=== PATIENT | female | born 1960 | race Caucasian/White ===

== ENCOUNTER 2025-01-04 14:52 | Outpatient (AMB) | payer BC, SELFPAY ==
--- NOTE | 2025-01-04 14:59 | A.OFFVIS_ITS ---
Intake Visit Reasons: sooner follow up Accompanied by: Daughter Allergies amoxicillin (From Augmentin) Allergy (Unknown, Verified 01/04/25 15:05) Unknown clavulanic acid (From Augmentin) Allergy (Unknown, Verified 01/04/25 15:05) Unknown sulfamethoxazole (From Bactrim) Allergy (Unknown, Verified 01/04/25 15:05) Unknown trimethoprim (From Bactrim) Allergy (Unknown, Verified 01/04/25 15:05) Unknown Medication List - Last Reconciled 01/04/25 by Pavithra Jj CNP aspirin 81 mg PO DAILY atorvastatin 80 mg PO DAILY clopidogrel 75 mg PO DAILY abnaplxcjfu-fklpqakjd-dtuxwanj 100-62.5-25 mcg (Trelegy Ellipta) 1 ea inhalation DAILY levetiracetam 500 mg PO BID 30 days levothyroxine 50 mcg PO DAILY memantine 10 mg PO BID 30 days metoprolol succinate ER 25 mg PO DAILY mirtazapine 30 mg PO BEDTIME sacubitril-valsartan 24-26 mg (Entresto) 1 tab PO BID sertraline 50 mg PO DAILY spironolactone 25 mg PO BID sumatriptan succinate take 1 tab at onset of headache; if no relief may repeat 1 tab after at least 2 hrs; PO 30 days HPI Comments Details: She was here with her daughter. She was living with her partner (Pearl) and her son, and had [employer] 40hrs/week. She was having more muscle twitches or jerking-type movement primarily in the morning and lasting up to 3 hours each time. It happened almost every day. Her daughter had a video of an episode that happened over the weekend that was taken by the patient's son and was reviewed. She appeared more confused and tired after these episodes. She had fall on Friday when she woke during the night to use the bathroom. There were no witnesses. She does not remember falling and it is unclear if she hit her head. She had small bruise or scrape to lower back. No headaches or dizziness. Medications were in bubble pack and she was taking levetiracetam twice a day, no missed doses. Memory declining, trouble following and comprehending multi-step instructions. She was living with her partner (Pearl) and her son who both worked during the day. Picky with food and clothes. Some tremors were noted in her hands in the morning and sometimes had trouble holding cup of tea because of it, got better as the day went on. Does some crafts, coloring, cares for her bird, and goes for walks with her dog and caregiver. Does some house hold chores with supervision. Switched to alcohol free beer in 08/2023. Had seizure on 08/20/2023 that was witnessed by partner and brought to [facility], started on levetiracetam 500mg twice a day and memantine decreased to once a day. Hx of language problems, trouble forming words, getting words out. Often repeats herself. Short-term memory problems since 2018. Migraines in 2015 which since resolved that were treated with topiramate and sumatriptan. [facility] Medical History (Updated 01/04/25 @ 15:23 by Pavithra Jj CNP) Low back pain History of heart attack COPD (chronic obstructive pulmonary disease) Hypothyroidism Review of Systems Const Denies chills, Denies daytime sleepiness, Denies difficulty sleeping, Denies fatigue, Denies fever(s), Denies frequent falls, Denies headache(s), Denies increased appetite, Denies poor appetite, Denies snoring, Denies weakness, Denies weight gain and Denies weight loss Eyes Denies loss of vision ENT Denies vertigo, Denies dizziness, Denies headache(s) and Denies neck pain Card Denies chest pain at rest, Denies chest pain with activity, Denies syncope, Denies leg edema, Denies palpitations, Denies dyspnea and Denies dyspnea on e xertion Resp Denies cough, Denies dyspnea, Denies dyspnea on exertion and Denies snoring GI Denies abdominal pain, Denies constipation, Denies heartburn, Denies diarrhea and Denies nausea Denies urinary frequency, Denies urinary incontinence and Denies urinary urgency Musc Denies abnormal gait, Denies back pain, Denies myalgias, Denies arthralgias, Denies neck pain, Denies numbness and Denies tingling Neuro Denies abnormal gait, Denies vertigo, Denies dizziness, Denies syncope, Denies frequent falls, Denies headache(s), Denies lack of coordination, Denies loss of vision, Reports memory loss, Denies numbness, Denies Other visual disturbances, Denies restless legs, Denies seizure-like activity, Denies tingling, Denies paresthesias, Reports tremor(s) and Denies weakness Psych Denies anxiety, Denies depression, Denies auditory hallucinations, Reports memory loss and Denies visual hallucinations Endo Denies fatigue and Denies palpitations Physical Exam Const Other: General Appearance:? normal, in no acute distress. Heart:? S1, S2 normal, no murmurs. Lungs:? clear anteriorly and posteriorly. Musculoskeletal:? normal. Extremities:? no edema. Psych:? alert, as below. Neuro Other: Abnormal Neurological Findings:?MMSE <12/30. She is unable to tell me her age or birthday. She was able to tell me that she was here with her daughter and her daughter's name. Somewhat flat affect. Mental Status: alert, as below. Cranial Nerves: Pupils are equal, round, and reactive to light. External ocular muscles are intact. Visual marquez are full, no ptosis. Face is symmetrical, no facial weakness or droop. Facial sensations are normal. Tongue protrudes in midline. Palate elevates symmetrically. Shoulder shrugging is normal Motor Examination: Normal muscle tone, bulk and strength. No atrophy or fasciculations. No drift of the extended upper extremities. DTR 2+. Plantars are flexor. Sensory Exam: Normal light touch, temperature, pinprick, vibration, and joint- position sensations. Rhomberg sign is absent. Coordination: No ataxia. No titubation. Gait Exam: Within normal limits. Cerebellar Signs: [id number] is okay. Extrapyramidal System: No tremor. Slight cogwheeling in upper extremities. No bradykinesia. Speech: Decreased. MMSE Level of Consciousness: Alert. Orientation: Does not know correct year, month, date, day and season. Does not know correct city, county and state. Does not know correct location and floor. Registration: Able to register 3 objects. Attention: Serial 7's unable Recall: Able to recall 0 out of 3 objects. Language: Decreased spontaneous speech, fluency, repetition, naming, comprehension, reading, and writing. Total Score: <12/30. Results Reviewed Results Reviewed: 06-16-19 EEG- WNL Labs normal. MRI shows biparietal atrophy Assessment & Plan Assessment & Plan (1) Alzheimer dementia: Code(s): G30.9 - Alzheimer's disease, unspecified; F02.80 - Dementia in other diseases classified elsewhere, unspecified severity, without behavioral disturbance, psychotic disturbance, mood disturbance, and anxiety Category: Medical Qualifiers: Alzheimer's disease onset: unspecified onset Dementia severity: unspec ified severity Dementia behavioral or psychological symptom: with mood disturbance Qualified Code(s): G30.9 - Alzheimer's disease, unspecified; F02.83 - Dementia in other diseases classified elsewhere, unspecified severity, with mood disturbance Plan: Decrease memantine 10mg 1 tablet once a day. Continue sertraline 50mg 1 tablet daily. (2) Seizure disorder: Code(s): G40.909 - Epilepsy, unspecified, not intractable, without status epilepticus Category: Medical Plan: Increase levetiracetam 750mg 1 tablet twice a day. EEG ordered. Follow up as previously scheduled or sooner as needed. (3) Migraine: Code(s): G43.909 - Migraine, unspecified, not intractable, without status migrainosus Category: Medical Qualifiers: Migraine type: unspecified Status migrainosus presence: without status migrainosus Intractability: not intractable Qualified Code(s): G43.909 - Migraine, unspecified, not intractable, without status migrainosus Plan: Continue sumatriptan 50mg 1 tablet as needed for migraine. (4) Unwitnessed fall: Code(s): R29.6 - Repeated falls Category: Medical Plan: CT brain ordered. Orders: Orders CT head/brain wo IV con Today F02.83 - Dementia in other diseases classified elsewhere, unspecified severity, with mood disturbance, G30.9 - Alzheimer's disease, unspecified, R29.6 - Repeated falls EEG Routine Today G40.909 - Epilepsy, unspecified, not intractable, without status epilepticus Medications: New memantine (Namenda) 10 mg PO DAILY 30 tabs 5RF 30 days levetiracetam 750 mg PO BID 60 tabs 5RF 30 days Discontinued memantine Discontinued Reason: Doctor's Order 10 mg PO BID 30 days 60 tabs 5RF levetiracetam Discontinued Reason: Doctor's Order 500 mg PO BID 30 days 60 tabs 5RF Coding Level of Care Code Est Pt Level 4 (69870) Diagnoses Alzheimer's dementia with mood disturbance, unspecified dementia severity, unspecified timing of dementia onset G30.9; F02.83 Alzheimer's disease onset: unspecified onset Dementia severity: unspecified severity Dementia behavioral or psychological symptom: with mood disturbance Seizure disorder G40.909 Migraine without status migrainosus, not intractable, unspecified migraine type G43.909 Migraine type: unspecified Status migrainosus presence: without status migrainosus Intractability: not intractable Unwitnessed fall R29.6
--- OUTSIDE RECORDS SUMMARY | 2025-01-04 19:18 | XMS_ITS ---
Author Name [facility] Organization Unknown Care Team Organization Name Specialty Phone Email Start Date End Da te [facility] ACO 10/27/2024 [facility] 08/16/2022 10/27/2023 [facility] Jo Moon [facility] 01/15/2022
--- OUTSIDE RECORDS SUMMARY | 2025-01-04 19:18 | XMS_ITS | Clinical Summary ---
Author Organization [facility] Address [address] [place] [address] Phone Care Team Providers Care Rn Research Name Role Phone Shahida Salazar MD Primary Care Prov ider Allergies Active Allergy Reactions Criticality Noted Date Comments Amoxicillin-Pot Clavulanate Numbness 01/16/20 06 Diclofenac Sodium Nausea And Vomiting 3 Sulfamethoxazole-Trimethoprim Numbness 2005 Medications levETIRAcetam (KEPPRA) 500 mg tablet Take 1 tablet (500 mg total) by mouth 2 (two) times a day. 08/21/19 24 Active memantine (NAMENDA) 10 mg tablet Take 1 tablet (10 mg total) by mouth 1 (one) time each day. 09/02/19 24 Active sertraline (ZOLOFT) 50 mg tablet Take 1 tablet (50 mg total) by mouth 1 (one) time each day. 02/19/20 22 Active spironolactone (ALDACTONE) 25 mg tablet Take 0.5 tablets (12.5 mg total) by mouth 1 (one) time each day. 90 tablet 06/19/19 25 Active fluticasone-um eclidinium-clement anterol (Trelegy Ellipta) 100-62.5-25 mcg inhaler Inhale 1 puff (100 mcg total) by mouth 1 (one) time each day. Rinse mouth with water after use to reduce aftertaste and incidence of candidiasis. Do not swallow. 1 each 06/29/19 25 026 Active albuterol HFA (PROAIR HFA ; PROVENTIL HFA ; VENTOLIN HFA) 90 mcg/actuation inhaler Inhale 2 puffs by mouth every 6 (six) hours if needed for wheezing. 6.7 g 11 06/29/19 25 026 Active albuterol 2.5 mg /3 mL (0.083 %) nebulizer solution Take 3 mL (2.5 mg total) by nebulization if needed for wheezing. Active aspirin 81 mg EC tablet TAKE 1 TABLET BY MOUTH ONCE DAILY 90 tablet 1 09/17/19 Active walker misc 1 Device 1 (one) time each day. Walker with seat 1 each 10/23/19 Active sacubitriL-danette sartan (Entresto) 24-26 mg per tablet Take 0.5 tablets by mouth 2 (two) times a day. 10/23/19 Active mirtazapine (REMERON) 30 mg tablet Take 1 tablet (30 mg total) by mouth at bedtime. 30 each 2 12/04/19 25 Active clopidogreL (PLAVIX) 75 mg tablet TAKE 1 TABLET BY MOUTH ONCE DAILY 30 tablet 4 01/01/20 25 Active metoprolol succinate (TOPROL-XL) 25 mg 24 hr tablet TAKE 1 TABLET BY MOUTH ONCE DAILY 30 tablet 4 01/01/20 25 Active atorvastatin (LIPITOR) 80 mg tablet TAKE 1 TABLET BY MOUTH ONCE DAILY 30 tablet 4 01/01/20 25 Active levothyroxine (SYNTHROID, LEVOTHROID) 50 mcg tablet @@TAKE 1 TABLET BY MOUTH DAILY. 30 tablet 4 01/01/20 25 Active clopidogreL (PLAVIX) 75 mg tablet TAKE 1 TABLET BY MOUTH ONCE DAILY 30 tablet 2 10/07/19 25 Discontinued metoprolol succinate (TOPROL-XL) 25 mg 24 hr tablet TAKE 1 TABLET BY MOUTH ONCE DAILY 30 tablet 2 10/07/19 25 025 Discontinued atorvastatin (LIPITOR) 80 mg tablet TAKE 1 TABLET BY MOUTH ONCE DAILY 30 tablet 2 10/07/19 25 025 Discontinued levothyroxine (SYNTHROID, LEVOTHROID) 50 mcg tablet @@TAKE 1 TABLET BY MOUTH DAILY. 30 tablet 2 10/07/19 25 025 Discontinued Active Problems Problem Noted Date Diagnosed Date Alzheimer disease ([facility] V24, [facility] V28) Assessment & Plan (12/03/2024 3:41 PM EDT): Patient follows with neurology regularly. Cognitive decline has been progressive, compromise of her daily performance and her daily activites. Physical deconditioning. Recurrent falls. Sometimes hallucinatory behavior, insomnia and decreased appetitie. Will increase the dose of Mirtazapine to 30mg. A referral was placed for psych eval. Recommended to keep the appts with neurology. Orders: Ambulatory referral to Talkiatry; Future Assessment & Plan (04/26/2024 1:37 PM EST): Patient follows regularly with neurology. She requires help and supervision for her daily activities. This is provided mostly by her family. Chronic congestive heart failure ([facility] V24, [facility] V28) 12/22/2023 Assessment & Plan (04/26/2024 1:37 PM EST): No signs of decompensation. She is on Entresto, spironolactone, aspirin, metoprolol. Will continue same regimen. Recommended to keep the appointments with cardiology. History of non-ST elevation myocardial infarctio n (NSTEMI) 12/22/2023 Seizure disorder ([facility] V24, [facility] V28) 08/09 Cardiomyopathy ([facility] V24, [facility] V28) 2021 Overview (02/11/2024): Last Assessment & Plan: Recent echocardiogram in May 2022 revealed a normalized LVEF of 70%. Patient is euvolemic upon exam today. She denies exertional symptoms. She will continue on guideline directed medical therapy of Entresto, spironolactone, metoprolol. Patient will continue to monitor for symptoms and call our office should she begin to experience shortness of breath, decreased activity tolerance or peripheral edema. Assessment & Plan (08/18/2024 2:46 PM EDT): Patient with a history of HFrEF. No coronary obstructive disease identified in the past. Guideline directed therapy had improved left ventricular ejection fraction. Patient has lab work scheduled for a comprehensive metabolic profile. Patient is mildly orthostatic on exam but I would not back off on medical therapy at this time. She is asymptomatic with less than a 14 mmHg fall in systolic pressure standing. Will continue present medical therapy obtain an echocardiogram to reassess EF which has not been done in 2 years. Both clinically she appears to be stable no change in treatment at this time Orders: ECG 12 lead Transthoracic echocardiogram (TTE) complete with PRN contrast, bubble, strain, and 3D order panel; Future Orthostasis 06/04/2021 Overview (02/11/2024): Last Assessment & Plan: Patient is mildly orthostatic need to keep an eye on this given the medical therapy that she is on for her Alzheimer's COPD (chronic obstructive pu lmonary disease) [place] [place] [facility] [place] 05/31/2021 Overview (02/11/2024): D/C'd from [facility] 05/03/21 Assessment & Plan (12/03/2024 3:41 PM EDT): Patient follows regularly with pulmonary doctor. Currently on albuterol, Flovent, Trelegy. No recent visits to ER, no exacerbations. We will continue same medications. Assessment & Plan (04/26/2024 1:37 PM EST): She follows with pulmonary regularly. No recent exacerbations or visits to emergency. Currently on Flovent. Recommended to continue same regimen. 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 She continues on medical therapies with aspirin, Plavix, and atorvastatin 80 mg daily. I have reviewed with the patient the importance of a heart healthy lifestyle which includes eating a low-fat low-salt diet, getting regular exercise, maintaining a healthy weight, not smoking, and following up with routine medical care. Diverticulitis of colon 05/04/2009 Overview (02/11/2024): [place]; Guardione; perforated colon; concepcion, reversal; 2006 Hyperlipidemia 04/03/2009 Overview (02/11/2024): Last Assessment & Plan: Last fasting lipid profile was performed 8 months ago this revealed a total cholesterol of 183, triglycerides 114, HDL 76 and an LDL of 85. This is at goal. She will continue on her current dose of Lipitor and be mindful of her dietary fat intake. Chronic bronchitis ([facility] V24, [facility] V28) Intramural leiomyoma of uterus 05/14/2006 Overview (02/11/2024): small Migraine without aura 01/17/2006 Carpal tunnel syndrome 01/17/2006 Eczema 01/17/2006 Hypothyroidism 01/17/2006 Assessment & Plan (12/03/2024 3:41 PM EDT): Patient currently on levothyroxine 50 mcg a day. Last TSH wnl. Stable over the last years. We will continue same dose. Assessment & Plan (04/26/2024 1:37 PM EST): Currently on levothyroxine 50 mcg a day. Last TSH in August last year was within normal limits. Will continue same medication. Will recheck levels. Orders: Thyroid stimulating hormone; Future Resolved Problems Problem Noted Date Diagnosed Date Resolved Date Tobacco use disorder 01/17/2006 025 Encounters Date Type Department Care Team Description 12/15/2024 Telephone Adult Medicine [address] [phone] Shahida Sanchez MD 12/07/2024 Results Follow-Up [address] [phone] Shahida Sanchez MD 12/03/2024 2:30 PM EDT Office Visit [address] [phone] Shahida Sanchez MD Alzheimer disease ([facility] V24, [facility] V28) (Primary Dx); Chronic bronchitis, unspecified chronic bronchitis type ([facility] V24, [facility] V28); Hypothyroidism, unspecified type; Need for prophylactic vaccination and inoculation against influenza 11/30/2024 3:23 PM EDT - 11/30/2024 11:59 PM EDT Hospital Encounter Radiology Department [address] [phone] Encounter for screening mammogram for malignant neoplasm of breast Discharge Disposition: Home or Self Care 11/18/2024 Telephone Adult [address] [phone] Shahida Sanchez MD 11/18/[address] [phone] Shahida Sanchez MD 10/22/2024 11:00 AM EDT Office Visit [address] [phone] Xena Johnston PA Early onset Alzheimer's dementia without behavioral disturbance ([facility] V24, [facility] V28) (Primary Dx); History of non-ST elevation myocardial infarction (NSTEMI); Chronic congestive heart failure, unspecified heart failure type ([facility] V24, [facility] V28); Orthostasis; Shakiness; Steppage gait 10/22/2024 Telephone Adult Medicine [address] [phone] Xena Johnston PA from Last 3 Months Immunizations Immunization Administration Dates Next Due H1N1 Inj Preservative Free 03/31/2009 Influenza Quadravalent, MDCK , 0.5ml, preservative free (Flucelvax) 6mo and older 11/29/2020,12/28/2019 Influenza trivalent, 0.5mL, preservative free (Fluarix; FluLaval; Fluzone) ages 6mo and older (Afluria) 3 years and older 12/22/2023,11/27/2012,11/25/2011,02/28,03/31/2009,12/25/2007 Influenza trivalent, MDCK, 0 .5mL, preservative free (Flucelvax) 6mo and older 12/03/2024 Pneumococcal polysaccharide 23 valent (Pneumovax 23) 2yo and older 08/16/2008 Td Tetanus diptheria (Tdvax) 7yo and older 01/03/2004,01/03/2004 Tdap Tetanus diptheria acell ular pertussis (Boostrix; Adacel) 7yo and older 09/20/2014 Zoster recombinant (Shingrix ) 19yo and older 09/09/2020,03/20/2020,03/20/2020 Surgical History Surgery Date Site/Laterality Comments OTHER SURGICAL HISTORY 01/17/06 PROCEDURE: MI COLECTOMY PRTL W/COLOST/ILEOST & MUCOFISTULA; COMMENT: Guardione; reversal of colostomy 03/19/06 OTHER SURGICAL HISTORY 05/14 PROCEDURE: PAP SMEAR (1 SLIDE); COMMENT: ; neg MAMMOGRAM LOR 06/14 PROCEDURE: MAMMOGRAM, SCREENING, BOTH BREASTS; COMMENT: neg COLONOSCOPY 03/16 PROCEDURE: MI COLONOSCOPY STOMA DX INCLUDING COLLJ SPEC SPX; COMMENT: Genevieve; tics; R 10 y Medical History Medical History Date Comments Migraine without aura, witho ut mention of intractable migraine without mention of status migrainosus 01/17/2006 DX:Migraine with out aura, without mention of intractable migraine without mention of status migrainosus Contact dermatitis and other eczema, due to unspecified cause 01/17/2006 DX:Contact dermatitis and ot her eczema, due to unspecified cause Carpal tunnel syndrome 01/17/2006 DX:Carpal tunnel syndrome Backache, unspecified 01/17/2006 DX:Backach e, unspecified Unspecified hypothyroidism 01/17/2006 DX:Un specified hypothyroidism Other and unspecified hyperlipidemia 04/03/2009 DX:Other and unspecified hyperlipidemia Diverticulitis of colon (rachel bullock mention of hemorrhage)(562.11) 05/04/2009 DX:Diverticulitis of co john (without mention of hemorrhage)(562.11) Other specified personal his tory presenting hazards to health(V15.89) 06/2010 DX:Other specifie d personal history presenting hazards to health(V15.89); COMMENT: DAIANA 1 with hpv changes Bronchitis, not specified as acute or chronic DX:Bronchitis, not specified as acute or chronic Family History Medical History Relation Name Comments Heart attack Brother age 40's Cataracts Father Colon cancer Father Heart attack Father Breast cancer Maternal Grandmother Breast cancer Other mat grandmother Colon cancer Paternal Grandmother Blindness Neg Hx Glaucoma Neg Hx Macular degeneration Neg Hx Strabismus Neg Hx Relation Name Status Comments Brother Father Alive Maternal Grandmother Other mat grandmother Alive Paternal Grandmother Social History Tobacco Use Types Packs/Day Years Used Date Smoking Tobacco: Former Cigarettes Q uit: 02/23/2020 Smokeless Tobacco: Never Tobacco Cessation:Counseling Given: Not Answered Alcohol Use Standard Drinks/Week Comments Not Currently 1 (1 standard drink = 0.6 oz pur e alcohol) Housing Instability Answer Date Recorde d Are you worried that in the next 2 months you may not have stable housing? No 06/29/2024 Food Access & Nutrition Answer Date Rec orded Do you have access to a vari ety of food including fruits and vegetables? Yes 06/29/2024 Access to Healthcare Answer Date Record ed Within the last 3 months, ho w many times did you visit the emergency department for your medical care? 1 06/29/2024 Health Literacy Answer Date Recorded How often do you need to hav e someone help you when you read instructions, pamphlets, or other written material from your doctor or pharmacy? Always 06/29/2024 Caregiver: How often do you need to have someone help you when you read instructions, pamphlets, or other written material from your doctor or pharmacy? Not on file 06/29/2024 Financial Risk Answer Date Recorded How hard is it for you to pa y for the very basics like food, housing, medical care, and air conditioning / heating? Not very hard 06/29/2024 Transportation Answer Date Recorded Has the lack of transportati on kept you from meetings, work, or from getting things needed for daily living? No Has the lack of transportati on kept you from medical appointments or from getting medications? No 06/29/2024 Social Isolation Answer Date Recorded How often do you feel lonely or isolated from th ose around you? Never 06/29/2024 Food Risk Answer Date Recorded Within the past 12 months we worried whether our food would run out before we got money to buy more. Never true 06/29/2024 Within the past 12 months th e food we bought just didn't last and we didn't have money to get more. Never true 06/29/2024 Dependent Care Answer Date Recorded Do you need help finding or paying for care for your loved ones. For example, child development instructor or elderly care for an older adult? No 06/29/2024 Education Answer Date Recorded Do you think completing more education or training, like finishing a GED, going to college, or learning a trade, would be helpful for you? N/A 06/29/2024 Employment and Income Answer Date Recor ded During the last four weeks, have you been actively looking for work? No 06/29/2024 Living Situation Answer Date Recorded What is your living situation? Unrecognized valu e 06/29/2024 Comments No Sex and Gender Information Value Date Recorded Sex Assigned at Not on file Legal Sex Female 4:35 PM EST Gender Identity Not on file Sexual Orientation Not on file Obstetrics History Para Term AB IAB SAB Ectopic Multiple Livin g Live Births 2 2 2 2 Date Outcome GA Total Labor Labor/2nd/3rd Weight Sex Type Anes PTL Cecy A1 A5 Name Clin Term Term Last Filed Vital Signs Vital Sign Reading Time Taken Comments Blood Pressure 96/57 12/03/2024 2:25 PM EDT Pulse 65 12/03/2024 2:25 PM EDT Temperature 37.1 C (98.8 F) 12/03/2024 2:25 PM EDT Respiratory Rate 14 12/03/2024 2:25 PM EDT Oxygen Saturation 96% 12/03/2024 2:25 PM EDT Inhaled Oxygen Concentration - - Weight 68.1 kg (150 lb 3.2 oz) 12/03/2024 2:25 P M EDT Height 160 cm (5' 3 ) 12/03/2024 2:25 PM EDT Body Mass Index 26.61 12/03/2024 2:25 PM EDT Plan of Treatment Upcoming Encounters Date Type Department Care Team (Late st Contact Info) Description 02/22/2025 2:10 PM EST Office Visit [facility] [address] [place] [phone] Vidhi Thornton NP [address] [place] [address] [address] [place] [phone] 03/08/2025 12:00 PM EST Office Visit Adult Medicine [facility] [address] [place] [phone] Shahida Salazar MD [address] [place] [phone] 06/29/2025 2:15 PM EDT Office Visit Pulmonology - [place] [facility] [address] [place] [phone] Malu Watkins MD [address] [place] [phone] Health Maintenance Due Date Last Done Comments Pneumococcal Vaccine: 50+ Years (2 of 2 - PCV) 08/16/2009 08/16/2008 RSV Immunization Adult Patients (1 - Risk 50-74 years 1-dose series) 2010 Cervical Cancer Screening: Pap Smear 10/27/2015 10/26/2012, 10/26/2012 HIV Screening 02/16/2022 Medicare Annual Wellness Visit 02/16/2022 DTaP,Tdap,and Td Vaccines (4 - Td or Tdap) 09/20/2024 09/20/2014, 01/03/2004, 01/03/2004 Lung Cancer Screening (Low Dose CT) 06/17/2025 06/17/2024, 03/17/2023, 02/06/2022, Additional history exists Social Influencers of Health Screening 06/29/2025 06/29/2024 Hypertension/CHF/CAD Annual BMP Blood Test 09/17/2025 09/17/2024, 02/24/2024, 01/08/2024, Additional history exists Breast Cancer Screening 11/30/2026 12/01/19 25, 11/18/2023, 11/18/2023, Additional history exists Cholesterol Screening (Lipid Panel) 09/17/2029 09/17/2024, 01/08/2024, 01/08/2024 Colorectal Cancer Screening: Colonoscopy 05/20/2034 05/20/2024, 03/25/2015 Hepatitis C Screening Completed 09/20/2014 COVID-19 Vaccine Discontinued 06/10/2020 Zoster Vaccines Completed 09/09/2020, 03/10, 03/20/2020 Depression Screening Completed 04/23/2024, 09/02/19 24 Influenza Vaccine Completed 12/03/2024, , 11/29/2020, Additional history exists HIB Vaccines Aged Out No longer eligi ble based on patient's age to complete this topic HPV Vaccines Aged Out No longer eligi ble based on patient's age to complete this topic Hepatitis A Vaccines Aged Out No long er eligible based on patient's age to complete this topic Hepatitis B Vaccines Aged Out No long er eligible based on patient's age to complete this topic IPV Vaccines Aged Out No longer eligi ble based on patient's age to complete this topic MMR Vaccines Aged Out No longer eligi ble based on patient's age to complete this topic Meningococcal ACWY Vaccine Aged Out N o longer eligible based on patient's age to complete this topic Meningococcal B Vaccine Aged Out No l onger eligible based on patient's age to complete this topic RSV Immunization Patients Under 20 months Aged Out No longer eligible based on patient's age to complete this topic Varicella Vaccines Aged Out No longer eligible based on patient's age to complete this topic Procedures Procedure Name Priority Date/Time Associated Diagnosis Comments MG MAMMO DIGITAL SCREENING W CHRIS BILAT Routine 11/30/2024 3:46 PM EDT Encounter for screening mammogram for malignant neoplasm of breast COMPREHENSIVE METABOLIC PANEL Routine 09/17/2024 12:37 PM EDT Hypotension, unspecified hypotension type Mixed hyperlipidemia LIPID PANEL WITH REFLEX TO DIRECT LDL Routine 09/17/2024 12:37 PM EDT Hypotension, unspecified hypotension type Mixed hyperlipidemia CT LUNG SCREENING Routine 06/17/2024 1:1 4 PM EDT Encounter for screening for malignant neoplasm of respiratory organs Personal history of nicotine dependence EXTERNAL COLONOSCOPY REPORT Routine 05/20/2024 2:58 PM EDT HM DEPRESSION SCREENING Routine 09/02/2023 HEPATITIS C SCREENING Routine 09/20/2014 HPV Routine 10/26/2012 from Last 3 Months or Most Recently Relevant to Health Maintenance Results * MG Mammo Digital Screening w Chris bilat (11/30/2024 3:46 PM EDT) Anatomical Region Laterality Modality Breast Bilateral Mammography 12/07/2024 1:14 PM EDT Impressions 12/07/2024 1:23 PM EDT 1. No mammographic evidence of malignancy 2. Heterogeneous breast parenchyma BI-RADS CATEGORY: 2 - BENIGN RECOMMENDATION: Screening bilateral mammogram is recommended in 1 year. Mammo Location: [facility], [address] [place] [address], [facility], . -------- FINAL REPORT -------- Dictated By: Jane Roper Dictated Date: 12/07/2024 13:14 ET Assigned Physician: Jane Roper Reviewed and Electronically Signed By: Jane Roper Signed Date: 12/07/2024 13:23 ET Workstation ID: [id number] Transcribed By: Self Edit Transcribed Date: 12/07/2024 13:14 ET Narrative 12/07/2024 1:23 PM EDT A BILATERAL DIGITAL 3D SCREENING MAMMOGRAPHY HISTORY: Routine screening. Family history of breast cancer in grandmother. COMPARISON: Multiple priors dating back to 11/13/2022 Technique: Bilateral full field digital mammography (3D) was performed using standard CC and MLO projections CAD was used to evaluate this mammogram. FINDINGS: Right: No suspicious masses, groups of microcalcification or areas of architectural distortion identified. Stable typically benign parenchymal asymmetries. Left: No suspicious masses, groups of microcalcification or areas of architectural distortion identified. Stable typically benign parenchymal asymmetries. BREAST DENSITY: C - The breasts are heterogeneously dense which may obscure small masses. Procedure Note Jane Roper MD - 12/07/2024 A BILATERAL DIGITAL 3D SCREENING MAMMOGRAPHY HISTORY: Routine screening. Family history of breast cancer ingrandmother. COMPARISON: Multiple priors dating back to 11/13/2022 Technique: Bilateral full field digital mammography (3D) was performedusing standard CC and MLO projections CAD was used to evaluate this mammogram. FINDINGS: Right: No suspicious masses, groups of microcalcification or areas ofarchitectural distortion identified. Stable typically benign parenchymalasymmetries. Left: No suspicious masses, groups of microcalcification or areas ofarchitectural distortion identified. Stable typically benign parenchymalasymmetries. BREAST DENSITY: C - The breasts are heterogeneously dense which mayobscure small masses. IMPRESSION: 1. No mammographic evidence of malignancy 2. Heterogeneous breast parenchyma BI-RADS CATEGORY: 2 - BENIGN RECOMMENDATION: Screening bilateral mammogram is recommended in 1 year. Mammo Location: [facility], [address] [place] [address], [id number], . -------- FINAL REPORT -------- Dictated By: Jane Roper Dictated Date: 12/07/2024 13:14 ET Assigned Physician: Jane Roper Reviewed and Electronically Signed By: Jane Roper Signed Date: 12/07/2024 13:23 ET Workstation ID: [id number] Transcribed By: Self Edit Transcribed Date: 12/07/2024 13:14 ET us Shahida Salazar MD IMG BI PROCEDURES Final Result * Lipid panel with reflex to direct LDL (09/17/2024 12:37 PM EDT) Pathologist [facility] Cholesterol 133 0 - 200 mg/dL LAB CHEMISTRY METHOD 09/17/2024 5:18 PM EDT [facility] Triglycerides 69 0 - 150 mg/dL LAB CHEMISTRY METHOD 09/17/2024 5:18 PM EDT [facility] HDL 69 >=40 mg/dL LAB CHEMISTRY METHOD 09/17/2024 5:18 PM EDT [facility] LDL Calculated 50 0 - 100 mg/dL LAB CHEMISTRY METHOD 09/17/2024 5:18 PM EDT [facility] VLDL Cholesterol Leobardo 13.8 mg/dL LAB CHEMISTRY METHOD 09/17/2024 5:18 PM EDT [facility] Non HDL Chol. (LDL+VLDL) 64 <145 mg/dL LAB CHEMISTRY METHOD 09/17/2024 5:18 PM EDT [facility] Chol/HDL Ratio 1.9 0.0 - 4.4 LAB CHEMISTRY METHOD 09/17/2024 5:18 PM EDT [facility] Blood Venous blood specimen / Unknown Venipuncture / Unknown 09/17/2024 12:37 PM EDT 09/17/2024 12:37 PM EDT us Lilly WHITE LAB BLOOD ORDERABLES Final Resu lt [facility] [address] [place] [address], * (ABNORMAL) Comprehensive metabolic panel (09/17/2024 12:37 PM EDT) [facility] Sodium 141 133 - 145 mmol/L LAB CHEMISTRY METHOD 09/17/2024 5:18 PM EDT [facility] Potassium 4.4 3.5 - 5.5 mmol/L LAB CHEMISTRY METHOD 09/17/2024 5:18 PM EDT [facility] Chloride 108 96 - 110 mmol/L LAB CHEMISTRY METHOD 09/17/2024 5:18 PM [facility] CO2 29 21 - 32 mmol/L LAB CHEMISTRY METHOD 09/17/2024 5:18 PM [facility] Anion Gap 4 3 - 11 LAB CHEMISTRY METHOD 09/17/2024 5:18 PM [facility] Glucose 91 70 - 100 mg/dL LAB CHEMISTRY METHOD 09/17/2024 5:18 PM [facility] BUN 15 5 - 25 mg/dL LAB CHEMISTRY METHOD 09/17/2024 5:18 PM [facility] Creatinine 0.92 0.50 - 1.10 mg/dL LAB CHEMISTRY METHOD 09/17/2024 5:18 PM [facility] eGFR 70 >=60 mL/min/1. 73m2 LAB CHEMISTRY METHOD 09/17/2024 5:18 PM [facility] Comment:Calculation based on the Chronic Kidney Disease Epidemiology Collaboration (CKD-EPI) equation refit without adjustment for race. BUN/Creatinine Ratio 16.3 LAB CHEMISTRY METHOD 09/17/2024 5:18 PM [facility] Calcium 8.3(L) 8.5 - 10.5 mg/dL LAB CHEMISTRY METHOD 09/17/2024 5:18 PM [facility] AST (SGOT) 20 10 - 42 unit/L LAB CHEMISTRY METHOD 09/17/2024 5:18 PM [facility] ALT (SGPT) 30 10 - 60 unit/L LAB CHEMISTRY METHOD 09/17/2024 5:18 PM [facility] Alkaline Phosphatase 103 42 - 121 unit/L LAB CHEMISTRY METHOD 09/17/2024 5:18 PM [facility] Total Protein 6.6 6.0 - 8.0 g/dL LAB CHEMISTRY METHOD 09/17/2024 5:18 PM [facility] Albumin 3.7 3.2 - 5.0 g/dL LAB CHEMISTRY METHOD 09/17/2024 5:18 PM EDT [facility] Total Bilirubin 0.6 0.0 - 1.4 mg/dL LAB CHEMISTRY METHOD 09/17/2024 5:18 PM EDT [facility] Blood Venous blood specimen / Unknown Venipuncture / Unknown 09/17/2024 12:37 PM EDT 09/17/2024 12:37 PM EDT us Lilly WHITE LAB BLOOD ORDERABLES Final Resu lt [facility]) [facility] [address] [place] [address], * CT Lung Screening (06/17/2024 1:14 PM EDT) Anatomical Region Laterality Modality Chest Computed Tomogra phy 06/21/2024 1:43 PM EDT Impressions 06/21/2024 1:53 PM EDT Impression: No suspicious developing pulmonary nodule. No significant change. Lung-RADS Category: Lung-RADS 2: Nodule(s) with benign appearance or behavior. Continue annual screening with Low Dose Chest CT in 12 months. Telenolberto WHITE ([id number]) -------- FINAL REPORT -------- Dictated By: Edyta Edge Dictated Date: 06/21/2024 13:43 ET Assigned Physician: Edyta Edge Reviewed and Electronically Signed By: Edyta Edge Signed Date: 06/21/2024 13:53 ET Workstation ID: [id number] Transcribed By: Self Edit Transcribed Date: 06/21/2024 13:43 ET Narrative 06/21/2024 1:53 PM EDT History: 64 year-old 92 pack-year former smoker, asymptomatic, for lung cancer screening. Quit smoking 5 years ago. Comparison: 05/29/23, 02/27/23 Technique: Helical volumetric imaging of the thorax was performed, using low- dose technique, without IV contrast. DLP: 113.39 mGy/cm CTDIvol: 3.22 mGy GE lightspeed VCT Iterative reconstruction technique Findings: Lungs and Airways: The trachea and central bronchial tree remains patent. Centrilobular emphysema is again noted. A 4 mm solid, noncalcified juxtapleural nodule is unchanged at the base of the right lower lobe (image 215 series 3). A few sub-4 mm nodules, including some that are homogeneously calcified, are seen elsewhere in both lungs. No suspicious developing nodule is seen. Pleura: No pleural or pericardial effusions are seen. Base of neck, mediastinum and heart: The heart remains normal in size. Atherosclerotic calcification of the thoracic aorta is again seen. There is no developing thoracic lymphadenopathy. Soft tissues: The overlying soft tissues are unremarkable. Abdomen: This study was performed without contrast and with lower than standard dose. These factors reduce the sensitivity for detection of small lesions in the upper abdomen. No significant abnormality is seen. A mild chronic compression fracture is unchanged in the lower thoracic spine. No retropulsion is noted. Procedure Note Edyta Edge MD - 06/21/2024 History: 64 year-old 92 pack-year former smoker, asymptomatic, for lungcancer screening. Quit smoking 5 years ago. Comparison: 05/29/23, 02/27/23 Technique: Helical volumetric imaging of the thorax was performed, usinglow-dose technique, without IV contrast. DLP: 113.39 mGy/cm CTDIvol: 3.22 mGy Engradepeed VCT Iterative reconstruction technique Findings: Lungs and Airways: The trachea and central bronchial tree remains patent.Centrilobular emphysema is again noted. A 4 mm solid, noncalcified juxtapleural nodule is unchanged at the base ofthe right lower lobe (image 215 series 3). A few sub-4 mm nodules,including some that are homogeneously calcified, are seen elsewhere inboth lungs. No suspicious developing nodule is seen. Pleura: No pleural or pericardial effusions are seen. Base of neck, mediastinum and heart: The heart remains normal in size.Atherosclerotic calcification of the thoracic aorta is again seen. Thereis no developing thoracic lymphadenopathy. Soft tissues: The overlying soft tissues are unremarkable. Abdomen: This study was performed without contrast and with lower thanstandard dose. These factors reduce the sensitivity for detection of smalllesions in the upper abdomen. No significant abnormality is seen. A mild chronic compression fracture is unchanged in the lower thoracicspine. No retropulsion is noted. IMPRESSION: Impression: No suspicious developing pulmonary nodule. No significant change. Lung-RADS Category: Lung-RADS 2: Nodule(s) with benign appearance orbehavior. Continue annual screening with Low Dose Chest CT in 12 months. [place] ([id number]) -------- FINAL REPORT -------- Dictated By: Edyta Edge Dictated Date: 06/21/2024 13:43 ET Assigned Physician: Edyta Edge Reviewed and Electronically Signed By: Edyta Edge Signed Date: 06/21/2024 13:53 ET Workstation ID: [id number] Transcribed By: Self Edit Transcribed Date: 06/21/2024 13:43 ET Result [facility] Moon Castaneda MD IMG CT PROCEDURES Final Result * External Colonoscopy Report (05/20/2024 2:58 PM EDT) Anatomical Region Laterality Modality Endoscopy Result [facility] Provider GI~PROCEDURE ORDERABLES F inal Result * Depression Screening (09/02/2023) Pathologist [facility] Depression Screening Abstracted Result [facility] Provider HEALTH MAINTENANCE Final Result * Hepatitis C Screening (09/20/2014) Pathologist [facility] Hepatitis C Screening Abstracted Result [facility] Provider HEALTH MAINTENANCE Final Result * Cervical Cancer Screening: HPV (10/26/2012) Pathologist [facility] Cervical Cancer Screening: HPV Abstracted, Negative Result [facility] Provider HEALTH MAINTENANCE Final Result from Last 3 Months or Most Recently Relevant to Health Maintenance Insurance MEDICARE [place]ICAID [place] Advance Directives Documents on File Type Date Recorded Patient Medicinal Chemist Expl anation Health Care Decision (hx) 01/28/2022 AD FERRARA DIRECTIVE Health Care Decision (hx) 01/28/2022 AD FERRARA DIRECTIVE Health Care Decision (hx) 01/28/2022 AD FERRARA DIRECTIVE Health Care Decision (hx) 01/28/2022 AD FERRARA DIRECTIVE Health Care Decision (hx) 01/28/2022 AD FERRARA DIRECTIVE Health Care Decision (hx) 01/28/2022 AD FERRARA DIRECTIVE Health Care Decision (hx) 01/28/2022 AD FERRARA DIRECTIVE Health Care Decision (hx) 01/28/2022 AD FERRARA DIRECTIVE Health Care Decision (hx) 01/28/2022 AD FERRARA DIRECTIVE Health Care Decision (hx) 01/28/2022 AD FERRARA DIRECTIVE Health Care Decision (hx) 01/28/2022 AD FERRARA DIRECTIVE Health Care Decision (hx) 01/28/2022 AD FERRARA DIRECTIVE Care Teams Rn Research Relationship Specialty Start Date End Date Shahida Salazar MD [address] [place] [phone] PCP - General 01/28/22
--- OUTSIDE RECORDS SUMMARY | 2025-01-04 19:18 | XMS_ITS | Encounter Summary ---
Author Organization [facility] Address [address] [place] [address] Care Team Providers Care Melter Caster Name Role Phone Shahida Salazar MD Primary Care Prov ider Encounter Details Date Type Department Care Team ([facility] st Contact Info) Description 12/07/2024 Results Follow-Up Adult [address] [phone] Shahida Salazar MD [address] [place], [place] Social History Tobacco Use Types Packs/Day Years Used Date Smoking Tobacco: Former Cigarettes Q uit: 02/23/2020 Smokeless Tobacco: Never Alcohol Use Standard Drinks/Week Comments Not Currently [...] Record ed Within the last 3 months, kamilla w many times did you visit the [...] care for your loved ones. For example, attendant child activity or elderly care for an older adult? [...] on file Sexual Orientation Not on file documented as of this encounter Plan of Treatment Upcoming Encounters Date Type Department Care Team (Late st Contact Info) Description 02/22/2025 2:10 PM EST Office Visit [facility] Cardiology [facility] [address] [place] [phone] Vihdi Thornton NP [address] [place] [address] Dr Castillo [address] [place] [phone] 03/08/2025 12:00 PM EST Office Visit Adult Medicine [facility] [address] [place], [place] [phone] Shahida Salazar MD [address] [place], [place] 06/29/2025 2:15 PM EDT Office Visit Pulmonology - [place] [address] [facility] [address] [place] [phone] Malu Watkins MD [address] [place] [phone] documented as of this encounter Visit Diagnoses Not on filedocumented in this encounter Additional Health Concerns Assessment Noted Time PHQ-9 Depression Total Score: 8 04/23/19 25 5:32 PM EST documented as of this encounter Care Teams Melter Caster Relationship Specialty Start Date End Date Shahida Salazar MD [address] [place] [address] PCP - General 01/28/22 documented as of this encounter
== END 2025-01-04 15:29 | disposition home or self-care (01) ==
PROVIDERS: PCP Internal Medicine; Visit Provider Registered Nurse
DX: G30.9 Alzheimer's disease, unspecified (principal); F02.83 Dementia in other diseases classified elsewhere, unspecified severity, with mood disturbance; G40.909 Epilepsy, unspecified, not intractable, without status epilepticus; G43.909 Migraine, unspecified, not intractable, without status migrainosus; R29.6 Repeated falls
CPT/HCPCS: 99214

== ENCOUNTER 2025-01-10 15:03 | Outpatient (REF) | payer MEDICARE, MEDICAID, SELFPAY ==
--- OUTSIDE RECORDS SUMMARY | 2025-01-10 16:25 | XMS_ITS | Encounter Summary ---
Author Organization [facility] Address [address] [place] [address] Care Team Providers Care Casino Floor Person Name Role Phone Shahida Salazar MD Primary Care Prov ider Encounter Details Date Type Department Care Team ([facility] st Contact Info) Description 12/07/2024 Results Follow-Up Adult [address] [phone] Shahida Salazar MD [address] [place], [place] Social History Tobacco Use Types Packs/Day [...] care for your loved ones. For example, childcare provider or elderly care for an older adult? [...] Care Team (Late st Contact Info) Description 01/12/2025 3:[address] Scan - [place] [address] [place] [address] 02/22/2025 2:10 PM EST Office Visit [facility] [address] [place] [phone] Vidhi Thornton NP [address] [place] [address] Dr Castillo [address] [place] [phone] 06/29/2025 2:15 PM EDT Office Visit Pulmonology - [place] [address] [place] [phone] Malu Watkins MD [address] [place] [phone] documented as of this encounter Visit Diagnoses Not on filedocumented in this encounter Additional Health Concerns Assessment Noted Time PHQ-9 Depression Total Score: 8 04/23/19 25 5:32 PM EST documented as of this encounter Care Teams Casino Floor Person Relationship Specialty Start Date End Date Shahida Salazar MD [address] [place] [phone] PCP - General 01/28/22 documented as of this encounter
--- OUTSIDE RECORDS SUMMARY | 2025-01-10 16:25 | XMS_ITS | Clinical Summary ---
Author Organization 175 [facility] Address [address] [place] [address] Phone Care Team Providers Care Bone Crusher Name Role Phone Shahida Salazar MD Primary [...] (one) time each day. 09/02/19 24 Active spironolacton e (ALDACTONE) 25 mg tablet Take 0.5 tablets (12.5 mg total) by mouth 1 (one) time each day. 90 tablet 06/19/19 25 Active fluticasone-u meclidinium-v ilanterol (Trelegy Ellipta) 100-62.5-25 mcg inhaler Inhale 1 puff (100 mcg total) by mouth 1 (one) time each day. Rinse mouth with water after use to reduce aftertaste and incidence of candidiasis. Do not swallow. 1 each 12 06/29/19 25 026 Active albuterol HFA (PROAIR [...] MOUTH ONCE DAILY 90 tablet 1 09/17/19 25 Active walker misc 1 Device 1 (one) time each day. Walker with seat 1 each 10/23/19 25 Active sacubitriL-va lsartan (Entresto) 24-26 mg per tablet Take 0.5 tablets by mouth 2 (two) times a day. 10/23/19 25 Active mirtazapine (REMERON) 30 mg tablet Take 1 tablet (30 mg total) by mouth at bedtime. 30 each 2 12/04/19 25 025 Active clopidogreL (PLAVIX) 75 mg tablet TAKE [...] DAILY. 30 tablet 4 01/01/20 25 Active sertraline (ZOLOFT) 50 mg tablet Take 1 tablet (50 mg total) by mouth 1 (one) time each day. 90 tablet 3 01/11/20 25 Active sertraline (ZOLOFT) 50 mg tablet Take 1 tablet (50 mg total) by mouth 1 (one) time each day. 02/19/20 22 025 Discontinued(R eorder) clopidogreL (PLAVIX) 75 mg tablet TAKE 1 TABLET BY MOUTH ONCE DAILY 30 tablet 2 10/07/19 25 025 Discontinued metoprolol succinate (TOPROL-XL) 25 mg 24 hr tablet TAKE 1 TABLET BY MOUTH ONCE DAILY 30 tablet 2 10/07/19 25 025 Discontinued atorvastatin (LIPITOR) 80 mg tablet TAKE 1 TABLET BY MOUTH ONCE DAILY 30 tablet 2 10/07/19 025 Discontinued levothyroxine (SYNTHROID, LEVOTHROID) 50 mcg tablet @@TAKE 1 TABLET BY MOUTH DAILY. 30 tablet 2 10/07/19 025 Discontinued Active Problems Problem Noted Date Diagnosed Date Alzheimer disease ([facility] V24, [facility] V28) Assessment & Plan (12/03/2024 3:41 PM [...] by her family. Chronic congestive heart failure ([facility]24, [facility] V28) 12/22/2023 Assessment & Plan (04/26/2024 1:37 PM EST): No signs of decompensation. She is on Entresto, spironolactone, aspirin, metoprolol. Will continue same regimen. Recommended to keep the appointments with cardiology. History of non-ST elevation myocardial infarctio n (NSTEMI) 12/22/2023 Seizure disorder ([facility] V24, [facility] V28) 08/09 Cardiomyopathy ([facility] V24, [facility] V28) 2021 Overview (02/11/2024): Last Assessment & [...] Alzheimer's COPD (chronic obstructive pu lmonary disease) ([facility] V24, [facility] V28) 05/31/2021 Overview (02/11/2024): D/C'd from [facility] 05/03/21 Assessment & Plan (12/03/2024 3:41 [...] Elevated troponin 05/31/2021 Overview (02/11/2024): D/C'd from [facility] 05/03/21 Early onset Alzheimer's andrews ntia without behavioral disturbance ([facility] V24, [facility] V28) 03/26/2021 Anxiety 08/24/2020 NSTEMI (non-ST elevated myoc ardial infarction) ([facility] [place], [facility] [place]28) 02/11/2020 Overview (02/11/2024): D/C'd from [facility] 05/03/21 Last Assessment & Plan: With [...] of her dietary fat intake. Chronic bronchitis ([facility] [place], [facility] V28) Intramural leiomyoma of uterus 05/14/2006 Overview [...] Department Care Team Description 12/15/2024 Telephone Adult [address] [phone] Shahida Sanchez MD 12/07/2024 Results Follow-Up [address] [phone] Shahida Sanchez MD 12/03/2024 2:30 PM EDT Office Visit [address] [phone] Shahida Sanchez MD Alzheimer disease (CMS/HCC V24, CMS/HCC V28) (Primary Dx); Chronic bronchitis, unspecified chronic bronchitis type (CMS/HCC V24, CMS/HCC V28); Hypothyroidism, unspecified type; Need for prophylactic vaccination and inoculation against influenza 11/30/2024 3:23 PM EDT - 11/30/2024 11:59 PM EDT Hospital Encounter Radiology Department - [address] [phone] Encounter for screening mammogram for malignant neoplasm of breast Discharge Disposition: Home or Self Care 11/18/2024 Telephone Adult [address] [phone] Shahida Sanchez MD 11/18/2024 Telephone Adult [address] [phone] Shahida Sanchez MD 10/22/2024 11:00 AM EDT Office Visit [address] [phone] Xena Johnston PA Early onset Alzheimer's dementia without behavioral disturbance (CMS/HCC V24, CMS/HCC V28) (Primary Dx); History of non-ST elevation myocardial infarction (NSTEMI); Chronic congestive heart failure, unspecified heart failure type (CMS/HCC V24, [facility] V28); Orthostasis; Shakiness; Steppage gait 10/22/2024 Telephone Adult Medicine [address] [phone] Xena Johnston PA from Last 3 Months [...] Site/Laterality Comments OTHER SURGICAL HISTORY 01/17/06 PROCEDURE: RI COLECTOMY PRTL W/COLOST/ILEOST & MUCOFISTULA; COMMENT: Guardione; reversal of colostomy 03/19/06 OTHER SURGICAL HISTORY 05/14 PROCEDURE: PAP SMEAR (1 SLIDE); COMMENT: ; neg MAMMOGRAM LOR 06/14 PROCEDURE: MAMMOGRAM, SCREENING, BOTH BREASTS; COMMENT: neg COLONOSCOPY 03/16 PROCEDURE: RI COLONOSCOPY STOMA DX INCLUDING COLLJ SPEC SPX; [...] DX:Other and unspecified hyperlipidemia Diverticulitis of colon (wit hout mention of hemorrhage)(562.11) 05/04/2009 DX:Diverticulitis of co [...] ed Within the last 3 months, kamilla rosado many times did you visit the emergency [...] care for your loved ones. For example, director maternal child or elderly care for an older adult? [...] 3:[address] Scan - [address] [phone] 02/22/2025 2:10 PM EST Office Visit [facility] [address] [place] [address] Dr Hallman [address] [place] [phone] Vidhi Thornton NP [address] [place] [address] Dr Castillo [address] [place] [phone] 06/29/2025 2:15 PM EDT Office Visit Pulmonology - [place] [address] [facility] [address] [place] [phone] Malu Watkins MD [address] [place] [phone] Health Maintenance Due Date Last Done Comments [...] Additional history exists Breast Cancer Screening 11/30/2026 12/01/19, 11/18/2023, 11/18/2023, Additional history exists Cholesterol Screening (Lipid Panel) 09/17/2029 09/17/2024, 01/08/2024, 01/08/2024 Colorectal Cancer Screening: Colonoscopy 05/20/2034 05/20/2024, 03/25/2015 Hepatitis C Screening Completed 09/20/2014 COVID-19 Vaccine Discontinued 06/10/2020 Zoster Vaccines Completed 09/09/2020, 03/10, 03/20/2020 Depression Screening Completed 04/23/2024, 09/02/19 Influenza Vaccine Completed 12/03/2024, , 11/29/2020, Additional [...] PM EDT HM DEPRESSION SCREENING Routine 09/02/2023 HM HEPATITIS C SCREENING Routine 09/20/2014 HM HPV Routine 10/26/2012 from Last 3 Months [...] is recommended in 1 year. Mammo Location: [facility], [address] [place] [address], [address], . -------- FINAL REPORT -------- Dictated By: Jane Roper Dictated Date: 12/07/2024 13:14 ET Assigned Physician: Jane Roper Reviewed and Electronically Signed By: Jane Roper Signed Date: 12/07/2024 13:23 ET Workstation ID: [id number] Transcribed By: Self Edit Transcribed Date: 12/07/2024 [...] is recommended in 1 year. Mammo Location: [facility], [address] [place] [address], [address], . -------- FINAL REPORT -------- Dictated By: Jane Roper Dictated Date: 12/07/2024 13:14 ET Assigned Physician: Jane Roper Reviewed and Electronically Signed By: Jane Roper Signed Date: 12/07/2024 13:23 ET Workstation ID: [id number] Transcribed By: Self Edit Transcribed Date: 12/07/2024 13:14 ET us Shahida Salazar MD IMG BI PROCEDURES Final Result * Lipid panel with reflex to direct LDL (09/17/2024 12:37 PM EDT) Cholesterol 133 0 - 200 mg/dL LAB CHEMISTRY METHOD 09/17/2024 5:18 PM EDT [facility] Triglycerides 69 0 - 150 mg/dL LAB CHEMISTRY METHOD 09/17/2024 5:18 PM EDT [facility] HDL 69 >=40 mg/dL LAB CHEMISTRY METHOD 09/17/2024 5:18 PM EDT [facility] LDL Calculated 50 0 - 100 mg/dL LAB CHEMISTRY METHOD 09/17/2024 5:18 PM EDT [facility] VLDL Cholesterol Leobardo 13.8 mg/dL LAB CHEMISTRY METHOD 09/17/2024 5:18 PM EDT [facility] Non HDL Chol. (LDL+VLDL) 64 <145 mg/dL LAB CHEMISTRY METHOD 09/17/2024 5:18 PM EDT [facility] Chol/HDL Ratio 1.9 0.0 - 4.4 LAB CHEMISTRY METHOD 09/17/2024 5:18 PM EDT [facility] Blood Venous blood specimen / Unknown Venipuncture / Unknown 09/17/2024 12:37 PM EDT 09/17/2024 12:37 PM EDT us Lilly WHITE LAB BLOOD ORDERABLES Final Resu lt [facility] [address] [place] [address], * (ABNORMAL) Comprehensive metabolic panel (09/17/2024 12:37 PM EDT) Pathologist [facility] Sodium 141 133 - 145 mmol/L LAB CHEMISTRY METHOD 09/17/2024 5:18 PM EDT [facility] Potassium 4.4 3.5 - 5.5 mmol/L LAB CHEMISTRY METHOD 09/17/2024 5:18 PM EDT [facility] Chloride 108 96 - 110 mmol/L LAB CHEMISTRY METHOD 09/17/2024 5:18 PM [facility] CO2 29 21 - 32 mmol/L LAB CHEMISTRY METHOD 09/17/2024 5:18 PM [facility] Anion Gap 4 3 - 11 LAB CHEMISTRY METHOD 09/17/2024 5:18 PM [facility] Glucose 91 70 - 100 mg/dL LAB CHEMISTRY METHOD 09/17/2024 5:18 PM [facility] BUN 15 5 - 25 mg/dL LAB CHEMISTRY METHOD 09/17/2024 5:18 PM [facility] Creatinine 0.92 0.50 - 1.10 mg/dL LAB CHEMISTRY METHOD 09/17/2024 5:18 PM [facility] eGFR 70 >=60 mL/min/1. 73m2 LAB CHEMISTRY METHOD 09/17/2024 5:18 PM [facility] Comment:Calculation based on the Chronic Kidney Disease Epidemiology Collaboration (CKD-EPI) equation refit without adjustment for race. BUN/Creatinine Ratio 16.3 LAB CHEMISTRY METHOD 09/17/2024 5:18 PM [facility] Calcium 8.3(L) 8.5 - 10.5 mg/dL LAB CHEMISTRY METHOD 09/17/2024 5:18 PM [facility] AST (SGOT) 20 10 - 42 unit/L LAB CHEMISTRY METHOD 09/17/2024 5:18 PM [facility] ALT (SGPT) 30 10 - 60 unit/L LAB CHEMISTRY METHOD 09/17/2024 5:18 PM [facility] Alkaline Phosphatase 103 42 - 121 unit/L LAB CHEMISTRY METHOD 09/17/2024 5:18 PM [facility] Total Protein 6.6 6.0 - 8.0 g/dL LAB CHEMISTRY METHOD 09/17/2024 5:18 PM [facility] Albumin 3.7 3.2 - 5.0 g/dL LAB CHEMISTRY METHOD 09/17/2024 5:18 PM EDT [facility] Total Bilirubin 0.6 0.0 - 1.4 mg/dL LAB CHEMISTRY METHOD 09/17/2024 5:18 PM EDT [facility] Blood Venous blood specimen / Unknown Venipuncture / Unknown 09/17/2024 12:37 PM EDT 09/17/2024 12:37 PM EDT us Lilly WHITE LAB BLOOD ORDERABLES Final Resu lt [facility] [address] [place] [address], * CT Lung Screening (06/17/2024 1:14 PM EDT) Anatomical Region Laterality Modality Chest Computed Tomogra phy 06/21/2024 1:43 PM EDT Impressions 06/21/2024 1:53 PM EDT Impression: No suspicious developing pulmonary nodule. No significant change. Lung-RADS Category: Lung-RADS 2: Nodule(s) with benign appearance or behavior. Continue annual screening with Low Dose Chest CT in 12 months. Telenolberto WHITE ([id number]) -------- FINAL REPORT -------- Dictated By: Edyta Edge Dictated Date: 06/21/2024 13:43 ET Assigned Physician: Edyta Edge Reviewed and Electronically Signed By: Edyta Edge Signed Date: 06/21/2024 13:53 ET Workstation ID: [id number] Transcribed By: Self Edit Transcribed Date: 06/21/2024 13:43 ET Narrative 06/21/2024 1:53 PM EDT History: 64 year-old 92 pack-year former smoker, asymptomatic, for lung cancer screening. Quit smoking 5 years ago. Comparison: 05/29/23, 02/27/23 Technique: Helical volumetric imaging of the thorax was performed, using low- dose technique, without IV contrast. DLP: 113.39 mGy/cm CTDIvol: 3.22 mGy GE Zipideepeed VCT Iterative reconstruction technique Findings: Lungs and [...] DLP: 113.39 mGy/cm CTDIvol: 3.22 mGy GE Zipideepeed VCT Iterative reconstruction technique Findings: Lungs and [...] Dose Chest CT in 12 months. Telerad PA ([id number]) -------- FINAL REPORT -------- Dictated By: Edyta Edge Dictated Date: 06/21/2024 13:43 ET Assigned Physician: Edyta Edge Reviewed and Electronically Signed By: Edyta Edge Signed Date: 06/21/2024 13:53 ET Workstation ID: [id number] Transcribed By: Self Edit Transcribed Date: 06/21/2024 13:43 ET Moon Castaneda MD IMG CT PROCEDURES Final Result * External Colonoscopy Report (05/20/2024 2:58 PM EDT) Anatomical Region Laterality Modality Endoscopy Historical Provider GI~PROCEDURE ORDERABLES F inal Result * Depression Screening (09/02/2023) Depression Screening Abstracted Result [facility] Historical Provider HEALTH MAINTENANCE Final Result * Hepatitis C Screening (09/20/2014) Hepatitis C Screening Abstracted e [employer] Provider HEALTH MAINTENANCE Final Result * Cervical Cancer Screening: HPV (10/26/2012) Cervical Cancer Screening: HPV Abstracted, Negative Result [facility] Historical Provider HEALTH MAINTENANCE Final Result from Last 3 Months or Most Recently Relevant to Health Maintenance Insurance [place]ICARE [place] Advance Directives Documents on File Type Date Recorded 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
--- NOTE | 2025-01-10 16:38 | EEG_ITS ---
Reason for Exam: seizure G40.909 History: heart attack, COPD, hypothyroidism, dementia - Patient's family reports daily episodes of twitching and jerking in the morning. Patient appears more confused after episodes. Last known episode was a week ago. Last meal was around 1pm today. Medication: aspirin, atorvastatin, clopidogrel, fluticasone, levetiracetam, levothyroxine, memantine, metoprolol, mirtazapine, sacubitril-valsartan, sertraline, spironolactone, sumatriptan succinate Technical description Photic stimulation: completed Hyperventilation:?omitted Behavioral state: pleasant State of Consciousness: awake and sleep Skull defect: none Sedation: none Handedness: left Duration of study:? 34 min 10 sec Description: This is a 16 channel EEG with an EKG lead. Patient is reported awake and sleep during the tracing. Background EEG rhythm is mixed theta beta with intermittent asymmetric right hemispheric or temporal area theta range slowing. No definite sharp waves or spikes were noted. Photic stimulation did not produce any significant driving. Hyperventilation was not performed. Cardiac lead did not reveal any significant abnormality. Impression: Abnormal EEG suggestive of right temporal paroxysmal activity, which suggested tendency for focal seizure disorder. MTDD
== END 2025-01-10 15:04 | disposition home or self-care (01) ==
LOC: HO.NEURO 15:03
PROVIDERS: PCP Internal Medicine; Visit Provider Registered Nurse
DX: G40.909 Epilepsy, unspecified, not intractable, without status epilepticus (principal)
CPT/HCPCS: 95819

== ENCOUNTER → 2025-01-10 16:38 | Outpatient (BNV) | payer MEDICARE, MEDICAID, SELFPAY | PROVIDERS: PCP Internal Medicine; Visit Provider Psychiatry & Neurology Neurology | DX: G40.909 Epilepsy, unspecified, not intractable, without status epilepticus (principal); R94.01 Abnormal electroencephalogram [EEG] | CPT/HCPCS: 95819 ==

== ENCOUNTER 2025-03-09 12:57 | Outpatient (AMB) | payer MEDICARE, MEDICAID, SELFPAY ==
--- NOTE | 2025-03-09 12:58 | A.OFFVIS_ITS ---
Intake Visit Reasons: 6 month f/u Accompanied by: Daughter Allergies amoxicillin (From Augmentin) Allergy (Unknown, Verified 03/09/25 12:59) Unknown clavulanic acid (From Augmentin) Allergy (Unknown, Verified 03/09/25 12:59) Unknown sulfamethoxazole (From Bactrim) Allergy (Unknown, Verified 03/09/25 12:59) Unknown trimethoprim (From Bactrim) Allergy (Unknown, Verified 03/09/25 12:59) Unknown Medication List - Last Reconciled 03/09/25 by Pavithra Jj CNP aspirin 81 mg PO DAILY atorvastatin 80 mg PO DAILY clopidogrel 75 mg PO DAILY [id number]-ryoolcpvn-lbtydwyy 100-62.5-25 mcg (Trelegy Ellipta) 1 ea inhalation DAILY levetiracetam 750 mg PO BID 30 days levothyroxine 50 mcg PO DAILY memantine (Namenda) 10 mg PO DAILY 30 days metoprolol succinate ER 25 mg PO DAILY mirtazapine 30 mg PO BEDTIME sacubitril-valsartan 24-26 mg (Entresto) 1 tab PO BID sertraline 50 mg PO DAILY spironolactone 25 mg PO BID sumatriptan succinate take 1 tab at onset of headache; if no relief may repeat 1 tab after at least 2 hrs; PO 30 days HPI Comments Details: She was here with her daughter. She was living with her son and had [employer] TE[employer] 40hrs/week. She was doing okay. Jerking-type movement was better with increased dose of levetiracetam, no recent reports of episodes from son or mobile web application developer to daughter. Memory was about the same. She enjoyed doing crafts and coloring, but was noted to use the same colors regardless of what the picture was. She had trouble identifying animals or objects in the pictures she was coloring. 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 No recent falls. No headaches or dizziness. Appetite was so-so. It was difficult to find foods that she wanted to eat, and she often did not know what she wanted to eat. Mood was okay. Sleep was okay. Medications were in a bubble pack. Previously, she was havingmuscle twitches or jerking-type movement, almost every day, primarily in the morning, and lasting up to 3 hours each time. She appeared more confused and tired after these episodes. Her daughter had a video of an e pisode that was taken by the patient's son and was reviewed. She had an unwitnessed fall in 12/2024. Memory declining, trouble following and comprehending multi-step instructions. Picky with food and clothes. Some tremors were noted in her hands in the morning and sometimes had trouble holding cup of tea because of it, got better as the day went on. Switched to alcohol free beer in 08/2023. Had seizure on 08/20/2023 that was witnessed by partner and brought to [facility], started on levetiracetam 500mg twice a day and memantine decreased to once a day. Hx of language problems, trouble forming words, getting words out. Often repeats herself. Short-term memory problems since 2018. Migraines in 2014 which since resolved that were treated with topiramate and sumatriptan. [facility] Medical History (Updated 01/04/25 @ 15:23 by Pavithra Jj CNP) Low back pain History of heart attack COPD (chronic obstructive pulmonary disease) Hypothyroidism Review of Systems Const Denies chills, Denies daytime sleepiness, Denies difficulty sleeping, Denies fatigue, Denies fever(s), Denies frequent falls, Denies headache(s), Denies increased appetite, Denies poor appetite, Denies snoring, Denies weakness, Denies weight gain and Denies weight loss Eyes Denies loss of vision ENT Denies vertigo, Denies dizziness, Denies headache(s) and Denies neck pain Card Denies chest pain at rest, Denies chest pain with activity, Denies syncope, Denies leg edema, Denies palpitations, Denies dyspnea and Denies dyspnea on exertion Resp Denies cough, Denies dyspnea, Denies dyspnea on exertion and Denies snoring GI Denies abdominal pain, Denies constipation, Denies heartburn, Denies diarrhea and Denies nausea Denies urinary frequency, Denies urinary incontinence and Denies urinary urgency Musc Denies abnormal gait, Denies back pain, Denies myalgias, Denies arthralgias, Denies neck pain, Denies numbness and Denies tingling Neuro Denies abnormal gait, Denies vertigo, Denies dizziness, Denies syncope, Denies frequent falls, Denies headache(s), Denies lack of coordination, Denies loss of vision, Reports memory loss, Denies numbness, Denies Other visual disturbances, Denies restless legs, Denies seizure-like activity, Denies tingling, Denies paresthesias, Reports tremor(s) and Denies weakness Psych Denies anxiety, Denies depression, Denies auditory hallucinations, Reports memory loss and Denies visual hallucinations Endo Denies fatigue and Denies palpitations Physical Exam Const Other: General Appearance:? normal, in no acute distress. Heart:? S1, S2 normal, no murmurs. Lungs:? clear anteriorly and posteriorly. Musculoskeletal:? normal. Extremities:? no edema. Psych:? alert, as below. Neuro Other: Abnormal Neurological Findings:?MMSE <12/30. She is unable to tell me her age or birthday. She was able to tell me that she was here with her daughter and her daughter's name. Mental Status: alert, as below. Cranial Nerves: Pupils are equal, round, and reactive to light. External ocular muscles are intact. Visual marquez are full, no ptosis. Face is symmetrical, no facial weakness or droop. Facial sensations are normal. Tongue protrudes in midline. Palate elevates symmetrically. Shoulder shrugging is normal Motor Examination: Normal muscle tone, bulk and strength. No atrophy or fasciculations. No drift of the extended upper extremities. DTR 2+. Plantars are flexor. Sensory Exam: Normal light touch, temperature, pinprick, vibration, and joint- position sensations. Rhomberg sign is absent. Coordination: No ataxia. No titubation. Gait Exam: Within normal limits. Cerebellar Signs: Olgpba-xs-pokj is okay. Extrapyramidal System: No tremor. Slight cogwheeling in upper extremities. No bradykinesia. Speech: Decreased. MMSE Level of Consciousness: Alert. Orientation: Does not know correct year, month, date, day and season. Does not know correct city, county and state. Does not know correct location and floor. Registration: Able to register 3 objects. Attention: Serial 7's unable Recall: Able to recall 0 out of 3 objects. Language: Decreased spontaneous speech, fluency, repetition, naming, comprehension, reading, and writing. Total Score: <12/30. Results Reviewed Results Reviewed: [address] [address] Electroencephalogram Report Signed Patient: Beatriz Lopes MR#: [id number] : 1960 Acct:[id number] Age/Sex: 64 / F ADM Date: 01/10/25 Loc: [facility].NEURO Attending Dr: Pavithra Jj CNP Ordering Physician: Pavithra Jj CNP Date of Service: 01/10/25 Procedure(s): EEG Routine Accession Number(s): [id number] cc: Shahida Chery MD~ Reason for Exam: G40.909 - Epilepsy, unspecified, not intractable, without status epilept... Reason for Exam: seizure G40.909 History: heart attack, COPD, hypothyroidism, dementia - Patient's family reports daily episodes of twitching and jerking in the morning. Patient appears more confused after episodes. Last known episode was a week ago. Last meal was around 1pm today. Medication: aspirin, atorvastatin, clopidogrel, fluticasone, levetiracetam, levothyroxine, memantine, metoprolol, mirtazapine, sacubitril-valsartan, sertraline, spironolactone, sumatriptan succinate Technical description Photic stimulation: completed Hyperventilation:?omitted Behavioral state: pleasant State of Consciousness: awake and sleep Skull defect: none Sedation: none Handedness: left Duration of study:? 34 min 10 sec Description: This is a 16 channel EEG with an EKG lead. Patient is reported awake and sleep during the tracing. Background EEG rhythm is mixed theta beta with intermittent asymmetric right hemispheric or temporal area theta range slowing. No definite sharp waves or spikes were noted. Photic stimulation did not produce any significant driving. Hyperventilation was not performed. Cardiac lead did not reveal any significant abnormality. Impression: Abnormal EEG suggestive of right temporal paroxysmal activity, which suggested tendency for focal seizure disorder. Dictated By: Yun Carson MD Signed By: <Electronically signed by Yun Carson MD> 01/11/[address] head at [place] 01/12/2025: No acute intracranial pathology. Mild duffuse cerebral volume loss. Empty sella (reported) -- 48-20 EEG- WNL Labs normal. MRI shows biparietal atrophy Assessment & Plan Assessment & Plan (1) Alzheimer dementia: Code(s): G30.9 - Alzheimer's disease, unspecified; F02.80 - Dementia in other diseases classified elsewhere, unspecified severity, without behavioral disturbance, psychotic disturbance, mood disturbance, and anxiety Category: Medical Qualifiers: Alzheimer's disease onset: unspecified onset Dementia behavioral or psychological symptom: with mood disturbance Dementia severity: unspecified severity Qualified Code(s): G30.9 - Alzheimer's disease, unspecified; F02.83 - Dementia in other diseases classified elsewhere, unspecified severity, with mood disturbance Plan: Continue memantine 10mg 1 tablet once a day. Continue sertraline 50mg 1 tablet daily. Follow up in 6 months or sooner as needed. (2) Seizure disorder: Code(s): G40.909 - Epilepsy, unspecified, not intractable, without status epilepticus Category: Medical Plan: EEG and CT scan results reviewed. Continue levetiracetam 750mg 1 tablet twice a day. (3) Migraine: Code(s): G43.909 - Migraine, unspecified, not intractable, without status migrainosus Category: Medical Qualifiers: Intractability: not intractable Migraine type: unspecified Status migrainosus presence: without status migrainosus Qualified Code(s): G43.909 - Migraine, unspecified, not intractable, without status migrainosus Plan: Continue sumatriptan 50mg 1 tablet as needed for migraine. Coding Level of Care Code Est Pt Level 4 (32093) Diagnoses Alzheimer's dementia with mood disturbance, unspecified dementia severity, unspecified timing of dementia onset G30.9; F02.83 Alzheimer's disease onset: unspecified onset Dementia behavioral or psychological symptom: with mood disturbance Dementia severity: unspecified severity Seizure disorder G40.909 Migraine without status migrainosus, not intractable, unspecified migraine type G43.909 Intractability: not intractable Migraine type: unspecified Status migrainosus presence: without status migrainosus
--- OUTSIDE RECORDS SUMMARY | 2025-03-09 14:29 | XMS_ITS | Clinical Summary ---
Author Organization [address] [facility] Address [address] [place] [address] Phone Care Team Providers Care Menu Planner Name Role Phone Shahida Salazar MD Primary Care Prov ider Allergies Active Allergy Reactions Criticality Noted Date Comments Amoxicillin-Pot Clavulanate Numbness 01/16/20 06 Diclofenac Sodium Nausea And Vomiting 3 Sulfamethoxazole-Trimethoprim Numbness 2005 Medications levETIRAcetam (KEPPRA) 750 mg tablet Take 1 tablet (750 mg total) by mouth 2 (two) times [...] with seat 1 each 10/23/19 25 Active clopidogreL (PLAVIX) 75 mg tablet TAKE 1 TABLET BY MOUTH ONCE DAILY 30 tablet 4 01/01/20 25 Active metoprolol succinate (TOPROL-XL) 25 mg 24 hr tablet TAKE 1 TABLET BY MOUTH ONCE DAILY 30 tablet 4 01/01/20 25 Active atorvastatin (LIPITOR) 80 mg tablet TAKE 1 TABLET BY MOUTH ONCE DAILY 30 tablet 4 01/01/20 25 Active sertraline (ZOLOFT) 50 mg tablet Take 1 tablet (50 mg total) by mouth 1 (one) time each day. 90 tablet 3 01/11/20 25 Active sacubitriL-va lsartan (Entresto) 24-26 mg per tablet Take 0.5 tablets by mouth 2 (two) times a day. 90 tablet 1 01/21/20 25 Active levothyroxine (SYNTHROID, LEVOTHROID) 50 mcg tablet Take 1 tablet (50 mcg total) by mouth 1 (one) time each day before breakfast. Active mirtazapine (REMERON) 30 mg tablet TAKE 1 TABLET BY MOUTH DAILY AT BEDTIME 30 tablet 02/24/20 25 Active levothyroxine (SYNTHROID, LEVOTHROID) 50 mcg tablet @@TAKE 1 TABLET BY MOUTH DAILY. 30 tablet 4 01/01/20 25 025 Discontinued(T herapy completed) mirtazapine (REMERON) 30 mg tablet TAKE 1 TABLET BY MOUTH DAILY AT BEDTIME 30 tablet 02/03/20 25 025 Discontinued Active Problems Problem Noted Date Diagnosed Date Alzheimer disease 12/22/2023 Assessment & Plan (12/03/2024 3:41 PM EDT): [...] This is provided mostly by her family. History of non-ST elevation myocardial infarctio n (NSTEMI) 12/22/2023 Seizure disorder 09/02/2023 Cardiomyopathy 09/17/2021 Assessment & Plan (02/24/2025 2:48 PM EST): Patient has history of HFrEF with no obstructive coronary artery disease identified in the past. She continues on guideline directed medical therapy and as such had an improvement in her LVEF. Her most recent echocardiogram showed an LVEF of 55 to 60%. She denies any clinical symptoms of heart failure and appears euvolemic on physical examination. We will make no changes to her medical therapies and we will leave her on her present doses of Entresto, spironolactone, metoprolol as prescribed. Blood pressure does not allow for any further medication titration. We will continue to monitor this. Patient advised to seek emergency medical attention by calling 911 if they were to develop severe dyspnea, chest pain that did not resolve with rest or nitroglycerin, or if they were to faint. I've asked the patient to call if they develop worsening symptoms of heart failure such as increased shortness of breath, new or worsening cough, increased swelling in the legs or ankles, or weight gain of more than 2 pounds in one day or 4 pounds in one week. Assessment & Plan (08/18/2024 2:46 PM EDT): [...] bubble, strain, and 3D order panel; Future COPD (chronic obstructive pulmonary disease) Overview (02/11/2024): D/C'd from [facility] 05/03/21 Assessment & Plan (12/03/2024 3:41 PM EDT): Patient follows regularly with pulmonary doctor. Currently on albuterol, Flovent, Trelegy. No recent visits to ER, no exacerbations. We will continue same medications. Assessment & Plan (04/26/2024 1:37 PM EST): She follows with pulmonary regularly. No recent exacerbations or visits to emergency. Currently on Flovent. Recommended to continue same regimen. 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 Chronic bronchitis 08/16/2008 Intramural leiomyoma of uterus 05/14/2006 Overview (02/11/2024): [...] Problem Noted Date Diagnosed Date Resolved Date Chronic congestive heart failure 12/22/2023 02/24/2025 Assessment & Plan (04/26/2024 1:37 PM EST): No signs of decompensation. She is on Entresto, spironolactone, aspirin, metoprolol. Will continue same regimen. Recommended to keep the appointments with cardiology. Orthostasis 06/04/2021 02/24/2025 Overview (02/11/2024): Last Assessment & Plan: Patient is mildly orthostatic need to keep an eye on this given the medical therapy that she is on for her Alzheimer's Elevated troponin 05/31/2021 02/24/2025 Overview (02/11/2024): D/C'd from [facility] 05/03/21 NSTEMI (non-ST elevated myoc ardial infarction) 02/11/2020 02/24/2025 Overview (02/11/2024): D/C'd from [facility] 05/03/21 Last Assessment & Plan: With a [...] and following up with routine medical care. Tobacco use disorder 01/17/2006 025 Encounters Date Type Department Care Team Description 02/22/2025 2:10 PM EST Office Visit [facility] [address] [place] [address] Vidhi Thornton NP Cardiomyopathy, unspecified type (CMS/HCC V24, CMS/[facility] V28) (Primary Dx); Mixed hyperlipidemia 01/12/2025 3:30 PM EST - 01/12/2025 11:59 PM EST Hospital Encounter CT Scan - [address] [phone] Repeated falls; Alzheimer's disease, unspecified (CODE) ([facility] V24, [facility] V28); Dementia in other diseases classified elsewhere, unspecified severity, with mood disturbance ([facility] V24, [facility] V28) Discharge Disposition: Home or Self Care 12/15/2024 Telephone Adult Medicine [address] [phone] Shahida Sanchez MD 12/07/2024 Results Follow-Up Adult [address] [phone] Shahida Sanchez MD from Last 3 Months Immunizations Immunization Administration [...] Site/Laterality Comments OTHER SURGICAL HISTORY 01/17/06 PROCEDURE: ND COLECTOMY PRTL W/COLOST/ILEOST & MUCOFISTULA; COMMENT: Guardione; reversal of colostomy 03/19/06 OTHER SURGICAL HISTORY 05/14 PROCEDURE: PAP SMEAR (1 SLIDE); COMMENT: ; neg MAMMOGRAM LOR 06/14 PROCEDURE: MAMMOGRAM, SCREENING, BOTH BREASTS; COMMENT: neg COLONOSCOPY 03/16 PROCEDURE: ND COLONOSCOPY STOMA DX INCLUDING COLLJ SPEC SPX; [...] DX:Bronchitis, not specified as acute or chronic NSTEMI (non-ST elevated myoc ardial infarction) ([facility] V24, [facility] V28) 02/11/2020 D/C'd from [facility] 05/03/21 Last Assessment & Plan: With a history of NSTEMI and found to have distal LAD occlusion in the past. She continues on medical therapies with aspirin, Plavix, and atorvastatin 80 mg daily. I have reviewed with the patient the importance of a heart healthy lifestyle which includes eating a low-fat low-salt diet, getting regular exercise, maintaining a healthy weig Chronic congestive heart kalyn lure ([facility] V24, [facility] V28) 12/22/2023 Orthostasis 06/04/2021 Last Assessment & Plan: Patient is mildly orthostatic need to keep an eye on this given the medical therapy that she is on for her Alzheimer's Family History Medical History Relation Name Comments [...] Years Used Date Smoking Tobacco: Former Cigarettes 2 Q uit: 02/23/2020 Smokeless Tobacco: Never Tobacco [...] for your loved ones. For example, child care assistant or elderly care for an older adult? [...] Sign Reading Time Taken Comments Blood Pressure 110/64 02/22/2025 1:58 PM EST Pulse 63 02/22/2025 1:58 PM EST Temperature 37.1 C (98.8 F) 12/03/2024 2:25 PM EDT Respiratory Rate 14 12/03/2024 2:25 PM EDT Oxygen Saturation 97% 02/22/2025 1:58 PM EST Inhaled Oxygen Concentration - - Weight 71.2 kg (157 lb) 02/22/2025 1:58 PM EST Height 160 cm (5' 3 ) 02/22/2025 1:58 PM EST Body Mass Index 27.81 02/22/2025 1:58 PM EST Plan of Treatment Upcoming Encounters Date Type Department Care Team (Late st Contact Info) Description 05/16/2025 8:00 AM EDT Office Visit Adult Medicine [address] [phone] Shahida Salazar MD [address] [place], [place] 06/29/2025 2:15 PM EDT Office Visit Pulmonology - [place] [address] [place] [address] Malu Watkins MD [address] [place] [phone] Health Maintenance Due Date Last Done Comments Pneumococcal Vaccine: 50+ Years (2 of 2 - PCV) 08/16/2009 08/16/2008 RSV Immunization Adult Patients (1 - Risk 50-74 years 1-dose series) 2010 Cervical Cancer Screening: Pap Smear 10/27/2015 10/26/2012 HIV Screening 02/16/2022 Medicare Annual Wellness Visit 02/16/2022 DTaP,Tdap,and Td Vaccines (4 - Td or Tdap) 09/20/2024 09/20/2014, 01/03/2004, 01/03/2004 Social Influencers of Health Screening 06/29/2025 06/29/2024 Breast Cancer Screening 11/30/2026 12/01/19, 11/18/2023, 11/18/2023, Additional history exists Cholesterol Screening (Lipid Panel) 09/17/2029 09/17/2024, 01/08/2024, 01/08/2024 Colorectal Cancer Screening: Colonoscopy 05/20/2034 05/20/2024, 03/25/2015 Hepatitis C Screening Completed 09/20/2014 COVID-19 Vaccine Discontinued 06/10/2020 Zoster Vaccines Completed 09/09/2020, 03/10, 03/20/2020 Depression Screening Completed 04/23/2024, 09/02/19 24 Lung Cancer Screening (Low Dose CT) Discontinued 06/17/2024, 03/17/2023, 02/06/2022, Additional history exists Influenza Vaccine Completed 12/03/2024, , 11/29/2020, Additional [...] Procedure Name Priority Date/Time Associated Diagnosis Comments CT HEAD WO CONTRAST Routine 01/12/2025 3 :49 PM EST Repeated falls Alzheimer's disease, unspecified (CODE) (CMS/[facility] V24, CMS/[facility] V28) Dementia in other diseases classified elsewhere, unspecified severity, with mood disturbance (CMS/[facility] V24, [facility] V28) MG MAMMO DIGITAL SCREENING W CHRIS BILAT Routine 11/30/2024 3:46 PM EDT Encounter for screening mammogram for malignant neoplasm of breast LIPID PANEL WITH REFLEX TO DIRECT LDL Routine 09/17/2024 12:37 PM EDT Hypotension, unspecified hypotension type Mixed hyperlipidemia CT LUNG SCREENING Routine 06/17/2024 1:1 4 PM EDT Encounter for screening for malignant neoplasm of respiratory organs Personal history of nicotine dependence EXTERNAL COLONOSCOPY REPORT Routine 05/20/2024 2:58 PM EDT DEPRESSION SCREENING Routine 09/02/2023 HEPATITIS C SCREENING Routine 09/20/2014 PAP SMEAR Routine 10/26/2012 from Last 3 Months or Most Recently Relevant to Health Maintenance Results * CT Head wo Contrast (01/12/2025 3:49 PM EST) Anatomical Region Laterality Modality Head and Neck Computed Tomogra phy 01/12/2025 3:50 PM EST Impressions 01/12/2025 3:55 PM EST No acute intracranial pathology. Mild diffuse cerebral volume loss. Empty sella. -------- FINAL REPORT -------- Dictated By: Katelynn Vincent Dictated Date: 01/12/2025 15:50 ET Assigned Physician: Katelynn Vincent Reviewed and Electronically Signed By: Katelynn Vincent Signed Date: 01/12/2025 15:55 ET Workstation ID: [id number] Transcribed By: Self Edit Transcribed Date: 01/12/2025 15:50 ET Narrative 01/12/2025 3:[address] HEAD WO CONTRAST HISTORY: Falls. TECHNIQUE: Contiguous axial images were obtained from the skull base to the vertex without contrast. PRIOR STUDIES: CT brain 08/20/2023. MR brain 08/20/2023. FINDINGS: There is mild diffuse cerebral volume loss with prominence of ventricles and sulci. There is no acute intracranial hemorrhage. The olmos/white matter differentiation is preserved. The basal cisterns are patent. There is no mass effect or midline shift. There are no intra or extra-axial fluid collections identified. No skull fractures are seen. The visualized paranasal sinuses and mastoid air cells are clear. There is no abnormality at the foramen magnum. There is an empty sella. Procedure Note Katelynn Vincent MD - 01/12/2025 CT HEAD WO CONTRAST HISTORY: Falls. TECHNIQUE: Contiguous axial images were obtained from the skull base tothe vertex without contrast. PRIOR STUDIES: CT brain 08/20/2023. MR brain 08/20/2023. FINDINGS: There is mild diffuse cerebral volume loss with prominence ofventricles and sulci. There is no acute intracranial hemorrhage. The olmos/white matterdifferentiation is preserved. The basal cisterns are patent. There is nomass effect or midline shift. There are no intra or extra-axial fluidcollections identified. No skull fractures are seen. The visualized paranasal sinuses and mastoidair cells are clear. There is no abnormality at the foramen magnum. There is an empty sella. IMPRESSION: No acute intracranial pathology. Mild diffuse cerebral volume loss. Emptysella. -------- FINAL REPORT -------- Dictated By: Katelynn Vincent Dictated Date: 01/12/2025 15:50 ET Assigned Physician: Katelynn Vincent Reviewed and Electronically Signed By: Katelynn Vincent Signed Date: 01/12/2025 15:55 ET Workstation ID: [id number] Transcribed By: Self Edit Transcribed Date: 01/12/2025 15:50 ET us Pavithra Jj NP IMG CT PROCEDURES Final R esult * MG Mammo Digital Screening w Chris bilat (11/30/2024 3:46 PM EDT) Anatomical Region Laterality Modality Breast Bilateral Mammography 12/07/2024 1:14 PM EDT Impressions 12/07/2024 1:23 PM EDT 1. No mammographic evidence of malignancy 2. Heterogeneous breast parenchyma BI-RADS CATEGORY: 2 - BENIGN RECOMMENDATION: Screening bilateral mammogram is recommended in 1 year. Mammo Location: [facility], [address] [place] [address], [address], . -------- FINAL REPORT -------- Dictated By: Jane Roper Dictated Date: 12/07/2024 13:14 ET Assigned Physician: Jane Roper Reviewed and Electronically Signed By: Jane Roper Signed Date: 12/07/2024 13:23 ET Workstation ID: [id number] Transcribed By: Self Edit Transcribed Date: 12/07/2024 [...] is recommended in 1 year. Mammo Location: [facility], [address] [place] [address], [id number], . -------- FINAL REPORT -------- Dictated By: Jane Roper Dictated Date: 12/07/2024 13:14 ET Assigned Physician: Jane Roper Reviewed and Electronically Signed By: Jane Roper Signed Date: 12/07/2024 13:23 ET Workstation ID: [id number] Transcribed By: Self Edit Transcribed Date: 12/07/2024 13:14 ET us Shahida Salazar MD IMG BI PROCEDURES Final Result * Lipid panel with reflex to direct LDL (09/17/2024 12:37 PM EDT) Cholesterol 133 0 - 200 mg/dL LAB CHEMISTRY METHOD 09/17/2024 5:18 PM EDT [facility] Triglycerides 69 0 - 150 mg/dL LAB CHEMISTRY METHOD 09/17/2024 5:18 PM EDT [facility] HDL 69 >=40 mg/dL LAB CHEMISTRY METHOD 09/17/2024 5:18 PM EDT [facility] LDL Calculated 50 0 - 100 mg/dL LAB CHEMISTRY METHOD 09/17/2024 5:18 PM EDT [facility] VLDL Cholesterol Leobardo 13.8 mg/dL LAB CHEMISTRY METHOD 09/17/2024 5:18 PM EDT [facility] Non HDL Chol. (LDL+VLDL) 64 <145 mg/dL LAB CHEMISTRY METHOD 09/17/2024 5:18 PM EDT [facility] Chol/HDL Ratio 1.9 0.0 - 4.4 LAB CHEMISTRY METHOD 09/17/2024 5:18 PM EDT [facility] Blood Venous blood specimen / Unknown Venipuncture / Unknown 09/17/2024 12:37 PM EDT 09/17/2024 12:37 PM EDT us Lilly WHITE LAB BLOOD ORDERABLES Final Resu lt [facility] [address] [place] [address], * CT Lung Screening (06/17/2024 1:14 PM EDT) Anatomical Region Laterality Modality Chest Computed Tomogra phy 06/21/2024 1:43 PM EDT Impressions 06/21/2024 1:53 PM EDT Impression: No suspicious developing pulmonary nodule. No significant change. Lung-RADS Category: Lung-RADS 2: Nodule(s) with benign appearance or behavior. Continue annual screening with Low Dose Chest CT in 12 months. Stacey WHITE ([id number]) -------- FINAL REPORT -------- Dictated By: Edyta Edge Dictated Date: 06/21/2024 13:43 ET Assigned Physician: Edyta Edge Reviewed and Electronically Signed By: Edyta Edge Signed Date: 06/21/2024 13:53 ET Workstation ID: [id number] Transcribed By: Self Edit Transcribed Date: 06/21/2024 13:43 ET Narrative 06/21/2024 1:53 PM EDT History: 64 year-old 92 pack-year former smoker, asymptomatic, for lung cancer screening. Quit smoking 5 years ago. Comparison: 05/29/23, 02/27/23 Technique: Helical volumetric imaging of the thorax was performed, using low- dose technique, without IV contrast. DLP: 113.39 mGy/cm CTDIvol: 3.22 mGy GE Billingstreetpeed VCT Iterative reconstruction technique Findings: Lungs and [...] DLP: 113.39 mGy/cm CTDIvol: 3.22 mGy GE [employer]illingstreetpeed VCT Iterative reconstruction technique Findings: Lungs and [...] Dose Chest CT in 12 [place] ([id number]) -------- FINAL REPORT -------- Dictated By: Edyta Edge Dictated Date: 06/21/2024 13:43 ET Assigned Physician: Edyta Edge Reviewed and Electronically Signed By: Edyta Edge Signed Date: 06/21/2024 13:53 ET Workstation ID: [id number] Transcribed By: Self Edit Transcribed Date: 06/21/2024 13:[address] [facility] Mono Castaneda MD IMG CT PROCEDURES Final Result * External Colonoscopy Report (05/20/2024 2:58 PM EDT) Anatomical Region Laterality Modality Endoscopy Historical Provider GI~PROCEDURE ORDERABLES F inal Result * Depression Screening (09/02/2023) Pathologist Pending sale to [facility] Depression Screening Abstracted Historical Provider HEALTH MAINTENANCE Final Result * Hepatitis C Screening (09/20/2014) Pathologist Pending sale to [facility] Hepatitis C Screening Abstracted Historical Provider HEALTH MAINTENANCE Final Result * Pap Smear (10/26/2012) HM Pap smear Abstracted, Negative Historical Provider HEALTH MAINTENANCE Final Result from Last 3 Months or Most Recently Relevant to Health Maintenance Insurance MEDICARE [place]ICAID [place] Advance Directives Documents on File Type Date Recorded 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
== END 2025-03-09 13:24 | disposition home or self-care (01) ==
LOC: HO.HSM 12:57
PROVIDERS: PCP Internal Medicine; Referring Provider Internal Medicine; Visit Provider Registered Nurse
DX: G30.9 Alzheimer's disease, unspecified (principal); F02.83 Dementia in other diseases classified elsewhere, unspecified severity, with mood disturbance; G40.909 Epilepsy, unspecified, not intractable, without status epilepticus; G43.909 Migraine, unspecified, not intractable, without status migrainosus
CPT/HCPCS: 99214

== ENCOUNTER → 2025-03-09 12:57 | Outpatient (BNVA) | payer MEDICARE, MEDICAID, SELFPAY | PROVIDERS: PCP Internal Medicine; Referring Provider Internal Medicine; Visit Provider Registered Nurse | DX: G30.9 Alzheimer's disease, unspecified (principal); F02.83 Dementia in other diseases classified elsewhere, unspecified severity, with mood disturbance; G40.909 Epilepsy, unspecified, not intractable, without status epilepticus; G43.909 Migraine, unspecified, not intractable, without status migrainosus; Z79.82 Long term (current) use of aspirin | CPT/HCPCS: 99212 ==